=== PATIENT | male | born 1965 | race Caucasian/White ===

== ENCOUNTER 2023-04-26 10:27 | Outpatient (CLI) | payer BC | END 2023-04-26 23:59 | disposition home or self-care (01) | LOC: RAD 10:27 | PROVIDERS: ATTEND Nurse Practitioner Family | DX: N50.89 Other specified disorders of the male genital organs (principal); R19.04 Left lower quadrant abdominal swelling, mass and lump; R79.89 Other specified abnormal findings of blood chemistry; N28.89 Other specified disorders of kidney and ureter; R03.0 Elevated blood-pressure reading, without diagnosis of hypertension; M51.36 Other intervertebral disc degeneration, lumbar region; Z76.89 Persons encountering health services in other specified circumstances | CPT/HCPCS: 76870; 93976 ==